=== PATIENT | male | born 1970 | race Caucasian/White ===

== ENCOUNTER 2018-08-09 21:57 | Inpatient (IN) ==
[2018-08-09 22:23] LABS: Basophils # (auto) 0.02 K/uL (0-0.2); Basophils % (auto) 0.2 %; Eosinophils # (auto) 0.03 K/uL (0-0.5); Eosinophils % (auto) 0.3 %; Hematocrit (blood only) 42.8 % (42-52); Hemoglobin 14.8 g/dL (14.0-18.0); Immature Granulocytes # (auto) 0.09 K/uL (0.00-0.02); Immature Granulocytes % (auto) 0.8 %; Lymphocytes # (auto) 3.71 K/uL (1.2-3.4); Lymphocytes % (auto) 33.1 %; Mean Corpuscular Hgb Conc 34.6 g/dL (32-36); Mean Corpuscular Volume 92.8 fL (80-100); Mean Platelet Volume 10.5 fL (7.4-10.4); Monocytes # (auto) 0.91 K/uL (0.11-0.59); Monocytes % (auto) 8.1 %; Neutrophils # (auto) 6.45 K/uL (1.4-6.5); Neutrophils % (auto) 57.5 %; Platelet Count 221 K/uL (130-400); RDW Coefficient of Variation 14.1 % (11.5-14.5); RDW Standard Deviation 48.3 fL (36.4-46.3); Red Blood Count 4.61 M/uL (4.7-6.1); White Blood Count 11.21 K/uL (4.8-10.8)
[2018-08-09 22:32] LABS: Prothrombin Time 10.4 Seconds (9.0-12.0)
--- NOTE | 2018-08-09 22:36 | Emergency Department Note ---
History of Present Illness General Chief complaint: Chest Pain Stated complaint: CHEST PAIN Time Seen by Provider: 08/09/18 22:09 History of Present Illness This patient is a 48-year-old male presents to the emergency department via ALS with complaints of chest pain that started approximately 1 hour ago. He says that it is sharp and stabbing in the center of his chest and radiates to his jaw. He also feels a heaviness in his arms bilaterally. The patient has a history of IN status post stent placement in 2013. He also reports feeling short of breath, but that is not unusual for him. Prior to the ambulance arrival, he took a nitroglycerin. He also had a nitroglycerin in the ambulance in addition to 4 aspirin. This seemed to improve his symptoms. No recent fever, chills or illnesses. Home Medications Home Medications Medication Instructions Recorded Confirmed Type albuterol sulfate [Ventolin HFA] 1 - 2 puff INHALATION .Q4-6HRS PRN 08/09/18 08/09/18 History carvedilol [Coreg] 25 mg PO BID 08/09/18 08/09/18 History fluticasone propionate [Flonase 1 spray INTRANASAL DAILY 08/09/18 08/09/18 History Allergy Relief] metformin [Glucophage] 500 mg PO BID 08/09/18 08/09/18 History omeprazole 20 mg PO DAILY 08/09/18 08/09/18 History pravastatin [Pravachol] 20 mg PO HS 08/09/18 08/09/18 History prednisone 0 mg PO .TAPER UD 08/09/18 08/09/18 History umeclidinium-vilanterol [Anoro 1 ea INHALATION DAILY 08/09/18 08/09/18 History Ellipta] Allergies Allergy/AdvReac Type Severity Reaction Status Date / Time clopidogrel [From Plavix] Allergy Severe ITCHING Verified 08/09/18 22:54 Past Med/Surg History Medical History CAD (coronary artery disease) Social History Feels Safe at Home: Yes Smoking Status: Current every day smoker Review of Systems A total of 10 systems reviewed and were otherwise negative Physical Exam Vital Signs Vital Signs - 24 hr 08/09/18 22:01 08/09/18 22:59 08/10/18 00:21 Temperature 36.1 C L Temperature Source Oral Sepsis Recent Fever Within 48 Hours No Sepsis New/Unexplained Change in Mental Status No Sepsis Action Taken by Nursing No Action Required Pulse Rate 88 Pulse Rate [Finger] 68 70 Pulse Rhythm Regular Pulse Strength Normal Respiratory Rate 20 18 18 Respiratory Effort / Characteristics Non-Labored Spontaneous Respiratory Depth Normal Respiratory Pattern Regular Blood Pressure 171/88 H Blood Pressure [Right Arm] 147/81 H 124/87 Blood Pressure Mean 115 Blood Pressure Mean [Right Arm] 103 99 Blood Pressure Position Lying Pulse Oximetry 96 93 93 Oxygen Delivery Method Room Air Room Air Room Air Constitutional WD/WN, vitals as above Eyes EOM intact bilaterally ENMT external ear and nose normal, oropharynx normal (Oral mucosa dry) Neck trachea midline Respiratory normal respiratory effort, lungs clear to auscultation Cardiovascular RRR, no murmur, no edema Chest (Breasts) Additional Comments: Chest pain is not reproducible Gastrointestinal (Abdomen) normal bowel sounds, soft, nontender, no hepatosplenomegaly Musculoskeletal no cyanosis or clubbing, extremities motor strength 5/5 Skin no rashes, warm and dry Neurologic Alert and oriented x3. No focal motor deficits. Psychiatric Acting appropriately Course Patient was seen and examined Vital signs including blood pressure were reviewed medications list was verified with patient Labs were obtained, and a saline lock was established And EKG was performed and reviewed. He was put on a monitor. Labs were reviewed. Imaging was also performed.. The patient was seen and examined by my supervising physician who is in agreement with my plan The case was then discussed with the [facility] service. They kindly agreed to evaluate the patient for possible inpatient management. The patient was in agreement. We also reviewed his results thus far. He voiced understanding. After discussion with the [facility] service, he was ordered heparin with a standard bolus IV and Nitropaste His vital signs remained stable in the emergency department. Consultations Consultation #1: Dr. Farias Administered Medications Discontinued Medications Heparin Sodium (Porcine) (Heparin Iv Bolus) Confirm Administered Dose 10,000 units .ROUTE .DocSpera-MED ONE Stop: 08/10/18 00:13 Last Admin: 08/10/18 00:17 Dose: 7,000 units Documented by: [id number] Cosigned by: [id number] Heparin Sodium/Dextrose () 1 ea IV NOW STA; Protocol Stop: 08/09/18 23:57 Last Admin: 08/10/18 00:18 Dose: Not Given Documented by: [id number] Heparin Sodium/Dextrose (Heparin Sodium/Dextrose) Confirm Administered Dose 25,000 units IV .STK-MED ONE Stop: 08/10/18 00:10 Last Admin: 08/10/18 00:16 Dose: 1,500 units Documented by: [id number] Cosigned by: [id number] Nitroglycerin (Nitro-Bid 2%) 2 inch EXT ONE ONE Stop: 08/09/18 23:58 Last Admin: 08/10/18 00:15 Dose: 2 inch Documented by: [id number] Medical Decision Making Medical Records Attestation: I reviewed the patient's medical records. Home Medications Current Medication List: was personally reviewed by me Laboratory Data Attestation: I reviewed the patient's lab results. Result diagrams: 08/09/18 21:37 08/09/18 21:37 Lab Results 08/09/18 08/09/18 08/09/18 Range/Units 21:37 21:37 21:37 WBC 11.21 H (4.8-10.8) K/uL RBC 4.61 L (4.7-6.1) M/uL Hgb 14.8 (14.0-18.0) g/dL Hct 42.8 (42-52) % MCV 92.8 (80-100) fL MCH 32.1 (25-34) pg MCHC 34.6 (32-36) g/dL RDW Std Deviation 48.3 H (36.4-46.3) fL RDW Coeff of Trevin 14.1 (11.5-14.5) % Plt Count 221 (130-400) K/uL MPV 10.5 H (7.4-10.4) fL Immature Gran % (Auto) 0.8 % Neut % (Auto) 57.5 % Lymph % (Auto) 33.1 % Furn[place] % (Auto) 8.1 % Eos % (Auto) 0.3 % Baso % (Auto) 0.2 % Immature Gran # (Auto) 0.09 H (0.00-0.02) K/uL Neut # (Auto) 6.45 (1.4-6.5) K/uL Lymph # (Auto) 3.71 H (1.2-3.4) K/uL [place] # (Auto) 0.91 H (0.11-0.59) K/uL Eos # (Auto) 0.03 (0-0.5) K/uL Baso # (Auto) 0.02 (0-0.2) K/uL RBC Morphology Unremarkable PT 10.4 (9.0-12.0) Seconds INR 1.0 (0.9-1.1) APTT (21.0-31.0) Seconds PTT Ratio Sodium 141 (136-145) mmol/L Potassium 3.7 (3.5-5.1) mmol/L Chloride 108 H (98-107) mmol/L Carbon Dioxide 27 (21-32) mmol/L Anion Gap 6.0 (3-11) BUN 16 (7-18) mg/dl Creatinine 1.12 (0.6-1.4) mg/dl Est Cr Clr Drug Dosing 93.5 ml/min Est GFR ( Amer) 88.3 Est GFR (Non-Af Amer) 76.2 BUN/Creatinine Ratio 14.4 (10-20) Glucose 221 H (70-99) mg/dl Calcium 9.3 (8.5-10.1) mg/dl Magnesium 2.1 (1.8-2.4) mg/dl Total Bilirubin 0.3 (0.2-1) mg/dl AST 11 L (15-37) U/L ALT 20 (12-78) U/L Alkaline Phosphatase 59 (45-117) U/L POC Troponin I (0-0.045) ng/ml Total Protein 7.1 (6.4-8.2) gm/dl Albumin 3.6 (3.4-5.0) gm/dl Globulin 3.5 (2.5-4.0) gm/dl Albumin/Globulin Ratio 1.0 (0.9-2) 08/09/18 08/09/18 Range/Units 22:11 22:19 WBC (4.8-10.8) K/uL RBC (4.7-6.1) M/uL Hgb (14.0-18.0) g/dL Hct (42-52) % MCV (80-100) fL MCH (25-34) pg MCHC (32-36) g/dL RDW Std Deviation (36.4-46.3) fL RDW Coeff of Trevin (11.5-14.5) % Plt Count (130-400) K/uL MPV (7.4-10.4) fL Immature Gran % (Auto) % Neut % (Auto) % Lymph % (Auto) % [place] % (Auto) % Eos % (Auto) % Baso % (Auto) % Immature Gran # (Auto) (0.00-0.02) K/uL Neut # (Auto) (1.4-6.5) K/uL Lymph # (Auto) (1.2-3.4) K/uL Furn[place] # (Auto) (0.11-0.59) K/uL Eos # (Auto) (0-0.5) K/uL Baso # (Auto) (0-0.2) K/uL RBC Morphology PT (9.0-12.0) Seconds INR (0.9-1.1) APTT 25.8 (21.0-31.0) Seconds PTT Ratio 1.0 Sodium (136-145) mmol/L Potassium (3.5-5.1) mmol/L Chloride (98-107) mmol/L Carbon Dioxide (21-32) mmol/L Anion Gap (3-11) BUN (7-18) mg/dl Creatinine (0.6-1.4) mg/dl Est Cr Clr Drug Dosing ml/min Est GFR ( Amer) Est GFR (Non-Af Amer) BUN/Creatinine Ratio (10-20) Glucose (70-99) mg/dl Calcium (8.5-10.1) mg/dl Magnesium (1.8-2.4) mg/dl Total Bilirubin (0.2-1) mg/dl AST (15-37) U/L ALT (12-78) U/L Alkaline Phosphatase (45-117) U/L POC Troponin I < 0.03 (0-0.045) ng/ml Total Protein (6.4-8.2) gm/dl Albumin (3.4-5.0) gm/dl Globulin (2.5-4.0) gm/dl Albumin/Globulin Ratio (0.9-2) Imaging Data Attestation: I personally reviewed and interpreted this imaging study as follows: Radiologist's Impression: Chest x-ray 1. No acute cardiopulmonary findings. 2. No change in interstitial thickening which is probably chronic. Electronically signed by: Jona Nieto M.D. 08/09/2018 10:36 PM Dictated: 08/09/182234 Transcribed: 08/09/182234 ECG Data Attestation: I personally reviewed and interpreted this ECG as follows: Indication: chest pain Rate (beats per minute): 74 Rhythm: normal sinus Findings: + PVC Additional Comments: ST depression evident in the anterior and inferior leads, which appears new when compared to EKG of December 2013 Blood Pressure Blood Pressure Findings: Elevated blood pressure MDM Narrative Differential diagnosis: Unstable angina, acute myocardial infarction, cardiac arrhythmia, anemia, thyroid abnormality, pneumothorax, pneumonia, bronchitis, pericarditis, electrolyte imbalance, among others This patient is a 48-year-old male presents the emergency department with complaints of chest pain. On exam, he was hypertensive. I cannot reproduce any of the pain. His EKG was reviewed. There appear to be inferior changes. The patient said he had very similar symptoms during his prior heart attack. His initial troponin is negative. I do not feel comfortable sending the patient home given his presentation and history. The patient was in agreement for hospitalist evaluation. He remained stable in the emergency department. Impression & Plan Unstable angina Discharge Plan Visit Data Chief Complaint: Chest Pain Stated Complaint: CHEST PAIN ED Provider: Hever Castaneda ED Midlevel Provider: Areli Lezama Discharge Problem: Unstable angina Patient Disposition: Admitted As Inpatient Condition: Fair Forms Stand Alone Forms: Call Back Authorization, [facility], Important Visit Information Prescriptions Prescriptions: No Action metformin [Glucophage] 500 mg tablet 500 mg PO BID RF: 0 carvedilol [Coreg] 25 mg tablet 25 mg PO BID RF: 0 prednisone 20 mg tablet PO .TAPER UD RF: 0 omeprazole 20 mg capsule,delayed release(DR/EC) 20 mg PO DAILY RF: 0 pravastatin [Pravachol] 20 mg tablet 20 mg PO HS RF: 0 albuterol sulfate [Ventolin HFA] 90 mcg/actuation HFA aerosol inhaler 1 - 2 puff inhalation .Q4-6HRS PRN (Reason: Shortness Of Breath Or Wheezing) RF: 0 fluticasone propionate [Flonase Allergy Relief] 50 mcg/actuation spray,suspension 1 spray intranasal DAILY RF: 0 Anoro Ellipta 62.5-25 mcg/actuation blister with device 1 ea inhalation DAILY RF: 0 Referrals Referrals: Barbara Cisneros DO [Primary Care Provider] -
--- NOTE | 2018-08-09 22:37 | XRay Report ---
XR chest 1V portable CLINICAL HISTORY: Midsternal chest pain COMPARISON STUDY: Chest radiograph July 26, 2018. FINDINGS: Lung volumes are normal. There is no pneumothorax or pleural effusion. There is no consolid ation. Mild interstitial thickening is unchanged. Cardiac size is normal. Mediastinal contours are no rmal. Appearance of the chest is unchanged. IMPRESSION: 1. No acute cardiopulmonary findings. 2. No change in interstitial thickening which is probably chronic. Electronically signed by: Jona Nieto M.D. 08/09/2018 10:36 PM
[2018-08-09 22:40] LABS: Albumin Level 3.6 gm/dl (3.4-5.0); BUN Creatinine Ratio 14.4 (10-20); Calcium 9.3 mg/dl (8.5-10.1); Creatinine Clr Calc Pharmacy 93.5 ml/min; Est GFR (African American) 88.3; Est GFR (Non-African American) 76.2; Magnesium 2.1 mg/dl (1.8-2.4); Potassium 3.7 mmol/L (3.5-5.1)
--- NOTE | 2018-08-09 22:40 | Emergency Department Note ---
ED Visit Note This Patient was discussed with the physician janitorial assistant, Areli Lezama PA-C. The pertinent historical and physical exam findings were confirmed. I agree with the studies ordered and with the interpretations of these studies. I agree with the disposition and care plan. .
[2018-08-09 22:43] LABS: Bilirubin,Total 0.3 mg/dl (0.2-1); Globulin 3.5 gm/dl (2.5-4.0); Total Protein 7.1 gm/dl (6.4-8.2)
[2018-08-09 22:48] LABS: RBC Morphology Unremarkable
[2018-08-09 23:33] LABS: Partial Thromboplastin Time 25.8 Seconds (21.0-31.0)
[2018-08-09] MEDS ORDERED: NITROGLYCERIN 2% OINTMENT 30GM TUBE EXT ONE (23:57)
[2018-08-10] MEDS ORDERED: HEPARIN 25000 UNIT/500 ML D5W IV ONE (00:09)
[2018-08-10] MEDS ORDERED: HEPARIN SOD (PORCINE) 1000 UNIT/ML 10 ML VIAL ONE (00:12)
[2018-08-10] MEDS ORDERED: ALBUTEROL HFA 8 GM INHALER INH PRN (00:33)
--- NOTE | 2018-08-10 01:07 | History & Physical Report ---
Date of Service August 10, 2018 Assessment & Plan (1) Unstable angina: 48-year-old male with history of COPD, hypertension, hyperlipidemia, type II diabetes, CAD��NM status post stents in 2012 in 2013 presents with acute chest pain. He states that the chest pain began at 630 tonight and continue for 45 minutes until he received nitro spray in route to the hospital. He describes the chest pain as initially beginning in his jaw, extending to his bilateral arms and finally becoming a substernal generalized pain. He states that he became short of breath and diaphoretic. He took nitro sublingually at home without any relief. Since his NM in 2013, the patient has had intermittent anginal symptoms, but they usually resolve fairly quickly. He states that this pain was very similar to his MIs in the past. Patient is a [id number] current smoker. Patient is finishing a course of prednisone for a COPD exacerbation. Unstable angina, ACS rule out �Patient's risk factors and history are concerning �Observe on telemetry, starting heparin, EKG with chest pain, trending troponins �Khadm-nq-buzz troponin was negative, no ischemic changes noted on EKG �Continue aspirin, beta-merry, statin Hypertension �Continue Coreg 25 twice daily �Patient describes nonadherence, recently ran out of his medications Hyperlipidemia �Continue pravastatin 20 mg, with recommend maximizing statin if patient can tolerate Diabetes �Hold metformin �Sliding scale insulin Tobacco abuse disorder �Provided smoking cessation counseling COPD �Continue home inhalers �Holding prednisone on the hospital GERD �Continue omeprazole DVT prophylax �Heparin CODE STATUS �Full (2) History of heart attack: (3) HTN (hypertension): (4) Diabetes: (5) Tobacco user: (6) Hyperlipidemia: (7) GERD (gastroesophageal reflux disease): (8) COPD (chronic obstructive pulmonary disease): History of Present Illness Primary Care Provider: Barbara Cisneros DO 48-year-old male with history of COPD, hypertension, hyperlipidemia, type II diabetes, CAD��NM status post stents in 2012 in 2013 presents with acute chest pain. He states that the chest pain began at 630 tonight and continue for 45 minutes until he received nitro spray in route to the hospital. He describes the chest pain as initially beginning in his jaw, extending to his bilateral arms and finally becoming a substernal generalized pain. He states that he became short of breath and diaphoretic. He took nitro sublingually at home without any relief. Since his NM in 2013, the patient has had intermittent anginal symptoms, but they usually resolve fairly quickly. He states that this pain was very similar to his MIs in the past. Patient is a [id number] current smoker. Patient is finishing a course of prednisone for a COPD exacerbation. Review of systems Constitutional; no fevers, chills, night HEENT; no sore throat, no runny nose CV; chest pain described above, no palpitations, no lower extremity swelling Pulmonary; shortness of breath with chest pain, no cough, no wheezing Abdomen; no abdominal pain, no nausea/vomiting/diarrhea Allergies Allergy/AdvReac Type Severity Reaction Status Date / Time clopidogrel [From Plavix] Allergy Severe ITCHING Verified 08/09/18 22:54 Home Medications Home Medications Medication Instructions Recorded Confirmed Type Anoro Ellipta 1 ea INHALATION DAILY 08/09/18 08/09/18 History albuterol sulfate [Ventolin HFA] 1 - 2 puff INHALATION .Q4-6HRS PRN 08/09/18 08/09/18 History fluticasone propionate [Flonase 1 spray INTRANASAL DAILY 08/09/18 08/09/18 History Allergy Relief] metformin [Glucophage] 500 mg PO BID 08/09/18 08/09/18 History omeprazole 20 mg PO DAILY 08/09/18 08/09/18 History prednisone 0 mg PO .TAPER UD 08/09/18 08/09/18 History amlodipine 2.5 mg PO DAILY #30 tab 08/11/18 Rx aspirin [Ecotrin Low Strength] 81 mg PO QAM #30 tab 08/11/18 Rx atorvastatin 40 mg PO DAILY #30 tab 08/11/18 Rx carvedilol [Coreg] 25 mg PO BID 90 Days #180 tab 08/11/18 08/09/18 Rx ticagrelor [Brilinta] 90 mg PO BID 30 Days #60 tab 08/11/18 Rx Past Med/Surg History Medical History CAD (coronary artery disease) Social History Preferred Language: Belarusian Communication Ability: Effective [employer] Required: No Beliefs That Will Affect Care: None Current Living Situation: Alone Other Information That Helps Us Care for You: No Feels Safe at Home: Yes Safety Concerns: Feels Safe At This Time Smoking Status: Current every day smoker Tobacco Type: cigarettes Do You Dip or Chew Tobacco: No Second Hand Exposure: No Tobacco Cessation Education Requested by Patient: No Hx Alcohol Use: Yes Hx Substance Use: No Review of Systems Review of Systems: All systems reviewed & are unremarkable except as noted in HPI & below Physical Exam Constitutional: WD/WN, vitals as above Eyes: PERRL, conjunctivae normal, anicteric sclerae ENMT: external ear and nose normal, oropharynx normal Neck: trachea midline, no thyromegaly Respiratory: normal respiratory effort, lungs clear to auscultation Cardiovascular: RRR, no murmur, no edema Gastrointestinal (Abdomen): normal bowel sounds, soft, nontender, no hepatosplenomegaly Musculoskeletal: no cyanosis or clubbing, extremities motor strength 5/5 Skin: no rashes, warm and dry Neurologic: PERRL, EOMI, accommodation nl, no face palsy, no dysarthria Psychiatric: A+Ox3, euthymic affect Results & Data Vital Signs (Past 12 Hours) Vital Signs Temp Pulse Pulse Resp BP BP Pulse Ox 08/10/18 00:21 70 18 124/87 93 08/09/18 22:59 68 18 147/81 H 93 08/09/18 22:01 36.1 C L 88 20 171/88 H 96 Code Status & VTE Plan Code Status full VTE Prophylaxis Plan VTE Prophylaxis will be ordered: Yes Supervising Physician Co-Signing Physician Notes Attending addendum: I have physically seen this patient, have supervised the medical residents activities, and agree with the H&P unless as otherwise noted. Assessment and Plan: Unstable angina/CKD/history of NM/coronary artery stents in 2012 and 2013- The patient will be admitted to telemetry for serial cardiac enzymes, serial EKG's, cardiac rhythm monitoring and a 2-D echocardiogram with Dopplers. Continue Coreg 25 mg p.o. twice daily. Continue aspirin 81 mg daily. Heparin drip. High-dose statin. Consult cardiology. Remainder of orders and notations as noted. Resident Activity Tracking Resident Involvement: Resident Care Provided Care Provided: Adult [facility] Medicine
[2018-08-10] MEDS ORDERED: POTASSIUM CHLORIDE 20 MEQ TABCR PO STA (01:44)
[2018-08-10] MEDS ORDERED: NITROGLYCERIN SL 0.4 MG/TAB TAB SL PRN (01:44)
[2018-08-10] MEDS ORDERED: ACETAMINOPHEN 325 MG TAB PO PRN (01:44)
[2018-08-10] MEDS ORDERED: GLUCOSE 10 TABS/TUBE PO PRN (02:00)
[2018-08-10] MEDS ORDERED: GLUCAGON FOR INJ 1 MG VIAL SQ PRN (02:00)
[2018-08-10] MEDS ORDERED: DEXTROSE 50% 50 ML SYRINGE IV PRN (02:00)
[2018-08-10] MEDS ORDERED: GLUCOSE 40% GEL 15 GM TUBE PO PRN (02:00)
[2018-08-10] MEDS ORDERED: CARBOHYDRATES FOR HYPOGLYCEMIA PO PRN (02:00)
[2018-08-10] MEDS ORDERED: Heparin Adult STANDARD Wt-Based Dextrose 5% 25,000 units/500 mL IV SCH (02:15)
[2018-08-10] MEDS ORDERED: CALCIUM CARBONATE 500 MG CHEWABLE TAB PO PRN (02:29)
[2018-08-10] MEDS: CARVEDILOL 25 MG TAB PO SCH ×2 (02:32→20:38)
[2018-08-10] MEDS ORDERED: PNEUMOCOCCAL POLYSACCHARIDES 25 MCG/0.5 ML VIAL/SYR IM ONE (04:00)
[2018-08-10] MEDS ORDERED: PNEUMOCOCCAL ADMINISTRATION CHARGE ONE (04:00)
[2018-08-10 04:51] LABS: Hematocrit (blood only) 40.9 % (42-52); Hemoglobin 14.2 g/dL (14.0-18.0); Mean Corpuscular Hgb Conc 34.7 g/dL (32-36); Mean Corpuscular Volume 92.1 fL (80-100); Mean Platelet Volume 10.2 fL (7.4-10.4); Platelet Count 200 K/uL (130-400); RDW Coefficient of Variation 14.1 % (11.5-14.5); RDW Standard Deviation 48.1 fL (36.4-46.3); Red Blood Count 4.44 M/uL (4.7-6.1)
[2018-08-10 05:09] LABS: BUN Creatinine Ratio 18.1 (10-20); Calcium 8.8 mg/dl (8.5-10.1); Creatinine Clr Calc Pharmacy 107.7 ml/min; Est GFR (African American) 103.8; Est GFR (Non-African American) 89.5; Magnesium 2.2 mg/dl (1.8-2.4); Potassium 3.5 mmol/L (3.5-5.1)
[2018-08-10 05:18] LABS: Phosphorus 2.9 mg/dl (2.5-4.9); Troponin I 0.396 ng/ml (0-0.045)
[2018-08-10 05:43] LABS: Basophils # (auto) 0.03 K/uL (0-0.2); Basophils % (auto) 0.2 %; Eosinophils % (auto) 1.5 %; Immature Granulocytes # (auto) 0.08 K/uL (0.00-0.02); Immature Granulocytes % (auto) 0.6 %; Lymphocytes # (auto) 6.09 K/uL (1.2-3.4); Lymphocytes % (auto) 45.8 %; Monocytes # (auto) 1.24 K/uL (0.11-0.59); Monocytes % (auto) 9.3 %; Neutrophils # (auto) 5.66 K/uL (1.4-6.5); Neutrophils % (auto) 42.6 %; RBC Morphology Unremarkable
[2018-08-10] MEDS: INSULIN ASPART 100 UNITS/ML 3 ML PEN SC SCH ×4 (07:58→20:59)
[2018-08-10] MEDS: ANORO ELLIPTA~ORDER AWAITING ACTION SCH ×3 (07:59→23:28)
[2018-08-10] MEDS: PANTOprazole 40 MG TAB PO SCH (08:00)
[2018-08-10] MEDS: NICOTINE 14 MG/24 HR PATCH TD SCH (08:00)
[2018-08-10] MEDS: ASPIRIN 81 MG ECTAB PO SCH (08:06)
[2018-08-10 08:43] LABS: Partial Thromboplastin Ratio 2.4
[2018-08-10 08:45] LABS: Partial Thromboplastin Time 64.3 Seconds (21.0-31.0)
--- NOTE | 2018-08-10 09:26 | Family Medicine Progress Note ---
Date of Service August 10, 2018 Assessment & Plan (1) Chest pain: Hever is a 54-year-old male with past medical history of COPD, hypertension, hyperlipidemia, type 2 diabetes not on insulin therapy, coronary artery disease with HI status post PCI in 2013 in 2013 who presented with chest pressure, jaw pain, shortness of breath, and diaphoresis which improved with EMS nitro administration and who has been admitted for cardiac evaluation. Chest pain,NSTEMI versus unstable angina �Presented with chest pain that began in the evening which extended to his jaw and arms and was associated with shortness of breath and diaphoresis. Pain was refractory to a single home dose of sublingual nitro, resolved with nitro administration by EMS. �He is high risk for ACS, (history of diabetes, past CAD, hypertension, 32-[id number] tobacco use history with 1 pack/day active use) �Troponin 0.396 on admission, trend every 6 hours �Initial EKG showed some flipped T waves, repeat EKG normalized with NSR �Heparin GTT, aspirin 81 mg daily, carvedilol 25 mg p.o. twice daily, pravastatin 20 mg daily. Although not listed in his med rec he does take aspirin 81 mg daily at home. �Cardiac history his pravastatin is a low�moderate intensity dosing, would recommend maximizing statin intensity and potentially moving to atorvastatin 40 mg - 80 mg or equivalent. He does not think he has been tried on Crestor in the past, but notes he did have aches with one other statin and does not remember which it was. Will think about conversion overnight, and revisit discussion tomorrow. �Cardiology consulted, pending further recommendations on echo versus cath Hypertension �Continue carvedilol as above �Mr. Ho recently ran out of medications and has not been taking his antihypertensive, does not cite cost as a prohibiting factor Hyperlipidemia �MANUFACTURING QUALITY MANAGER pravastatin 20 mg, optimize as above Type 2 diabetes mellitus �Converted to SSI short-acting while admitted �MANUFACTURING QUALITY MANAGER metformin held �Metformin recently started with dose increase, patient has experienced diarrhea since dose change Tobacco abuse �Discussed tobacco risk and effect on heart health �Smoking cessation counseling provided COPD �Was on a prednisone taper for COPD exacerbation, thinks he was on 40 mg MANUFACTURING QUALITY MANAGER �MANUFACTURING QUALITY MANAGER Anoro Ellipta GERD �MANUFACTURING QUALITY MANAGER omeprazole converted to Protonix 40 mg daily DVT prophylaxis �Heparin as above CODE STATUS: Full code (2) COPD (chronic obstructive pulmonary disease): (3) GERD (gastroesophageal reflux disease): (4) Hyperlipidemia: (5) Tobacco user: (6) HTN (hypertension): (7) Diabetes: Supervising Physician Co-Signing Physician Notes I personally examined the patient and verified all corea points of history and exam, discussed case, and agree with decision making with Dr Jolley. feeling better pain free. for [facility] this afternoon. vitals noted nad breathing unlabored no pallor or icterus, no focal neuro deficits NSTEMI/CAD - med management. will wnat to add ACEi after cath, discussed changing to high potency statin - he had a questionable history of leg cramps but wasn't sure what statins he'd tried or not. discussed that frequently crestor is tolerated by pts who can tolerate pravachol. he'll consider. since not actively infarcting now, reasonable to give him time to think. will need to discuss med managmeent/lifestyle/etc moving forward as well. await cath at this time. Subjective Hever reports he is comfortable this morning. He says he has no chest pain since administration of nitro in the ambulance. His night when okay, he has not had any shortness of breath or diaphoresis. He is not nauseous, but feels a little uncomfortable as he has to have a bowel movement. He has had some intermittent diarrhea since starting metformin 1 month ago. No lightheadedness, dizziness, palpitations today. Review of Systems Review of Systems: Constitutional: Denies fever, chills, malaise Eyes: Denies double vision, vision change, eye pain ENT: Denies ear pain, sore throat, sinus pain Cardiovascular: Denies Chest pain, chest pressure, palpitations, extremity swelling Respiratory: Denies shortness of breath, cough, sputum production, difficulty breathing Gastrointestinal: Denies abdominal pain, nausea, vomiting, constipation. Endorses abdomional pressure 'like I need to go to the bathroom' and diarrhea as noted in HPI Genitourinary: Denies pain with urination, urinary urgency, urinary frequency Musculoskeletal: Denies weakness, muscle aches/pain, joint aches/pain Integumentary:Denies rash, lesions, bruising Neurological: Denies headache, numbness, tingling Physical Exam Physical Exam: General: A&Ox3. NAD. Cooperative. HEENT: Atraumatic, normocephalic. Pulm: Diffuse inspiratory and expiratory wheezes, moderate air movement. No rales. Symmetrical chest rise. No increase work of breathing. No respiratory distress. Cardiac: RRR, -mrg. Radial pulses intact and symmetrical. No JVD. Cap refill brisk. Abdominal: Nontender, nondistended, soft. BS present. Results & Data Vital Signs (Past 12 Hours) Vital Signs Temp Pulse Pulse Pulse Resp BP BP 08/10/18 08:00 36.4 C L 75 75 18 138/77 08/10/18 04:00 36.4 C L 73 73 18 109/68 08/10/18 01:44 08/10/18 01:34 36.9 C 80 20 169/84 H 08/10/18 00:21 70 18 124/87 08/09/18 22:59 68 18 147/81 H 08/09/18 22:01 36.1 C L 88 20 171/88 H Pulse Ox Pulse Ox 08/10/18 08:00 98 08/10/18 04:00 94 08/10/18 01:44 95 08/10/18 01:34 96 08/10/18 00:21 93 08/09/18 22:59 93 08/09/18 22:01 96 Resident Activity Tracking Resident Involvement: Resident Care Provided Care Provided: Adult Hospital Medicine
--- NOTE | 2018-08-10 09:35 | Cardiology Consultation ---
Date of Consultation August 10, 2018 Assessment & Plan (1) Chest pain: 2. Coronary artery disease-- History of circumflex PCI, RCA ND treated medically 3. Hypertension 4. Dyslipidemia 5. Peripheral arterial disease 6. Type 2 diabetes mellitus 7. Tobacco use Patient was admitted yesterday with substernal chest, jaw and bilateral arm pain reminiscent of prior angina. Symptoms resolved with nitro. He remains chest pain free and is hemodynamically and electrically stable. Electrocardiogram without ST elevation. Initial troponin was negative, now elevated at 0.396. Recommend cardiac catheterization for further evaluation of coronary anatomy. This will be performed later today by Dr. Barcenas. Continue to trend troponin. Agree with heparin. Continue aspirin, beta merry and statin. Will check echo. Supervising Physician Co-Signing Physician Notes Patient seen and examined. Agree with assessment and plan as oultined by Physician [place] Brownlee. Briefly, Mr. Ho is a very pleasant 48-year-old man with a history of coronary artery disease post prior stent to dominant distal circumflex who was readmitted in the setting of recurrent chest pain reminiscent of prior ND. He was found to have elevated troponin consistent with NSTEMI. Echo showed preserved LV function without regional wall motion of normalities. On exam patient appears well-perfused with no vascular congestion. He was in normal sinus rhythm without murmurs. Patent radial artery pulse. In the setting of elevated risk ACS recommend proceeding with cardiac catheterization for further risk verification. Discussed risk and benefits, alternatives of procedure with patient and he is willing to proceed. History of Present Illness Reason for Consultation: Chest pain Attending Physician: Chester Sevilla DO History of Present Illness Mr. Ho is a 48 year old male with a medical history significant for coronary artery disease status post circumflex PCI (2012) and RCA myocardial infarction managed medically (2013), hypertension, dyslipidemia, tobacco use, type 2 diabetes, peripheral arterial disease (distal aorta occlusion), history of cardiomyopathy. He is followed by Dr. Benites in the outpatient setting. Cardiac history dates back to October 2012 when he underwent cardiac catheterization in [place] for angina and was found to have 95% stenosis of distal circumflex. He was treated with single RAMSES placement. In December 2013 he was admitted with non-ST elevation myocardial infarction and underwent cardiac catheterization which demonstrated small, nondominant RCA with long stenotic segment and focal 95-99% stenosis proximally. Vessel was too small and not amenable to PCI. Cath also demonstrated 30% mid-distal LAD stenosis and patent distal circumflex stent. Yesterday around 6 pm he developed substernal chest pain with radiation to jaw and bilateral arms. He had associated shortness of breath and diaphoresis. Symptoms occurred at rest and got progressively worse over about a one hour period. Symptoms reminiscent of prior angina. He took one nitro at home which did not help but also mentions it was . He called 911 and in the ambulance was given aspirin and nitro with resolution of his pain. Electrocardiogram without acute changes. Troponin in ED was negative, repeat elevated at 0.396. Patient remains chest pain free. No shortness of breath, orthopnea, PND or edema. No palpitations, lightheadedness, near syncope or syncope. Activity level is limited due to claudication symptoms. He has known occlusion of distal aorta and has denied vascular surgery referral. He has chronic exertional dyspnea which has been stable. Denies any recent exertional chest pain. No abnormal bleeding. Family History: No known premature CAD Social History: Smokes 1 pack per day. Not , no children. Unemployed. Allergies Allergy/AdvReac Type Severity Reaction Status Date / Time clopidogrel [From Plavix] Allergy Severe ITCHING Verified 08/09/18 22:54 Home Medications Home Medications Medication Instructions Recorded Confirmed Type albuterol sulfate [Ventolin HFA] 1 - 2 puff INHALATION .Q4-6HRS PRN 08/09/18 08/09/18 History carvedilol [Coreg] 25 mg PO BID 08/09/18 08/09/18 History fluticasone propionate [Flonase 1 spray INTRANASAL DAILY 08/09/18 08/09/18 History Allergy Relief] metformin [Glucophage] 500 mg PO BID 08/09/18 08/09/18 History omeprazole 20 mg PO DAILY 08/09/18 08/09/18 History pravastatin [Pravachol] 20 mg PO HS 08/09/18 08/09/18 History prednisone 0 mg PO .TAPER UD 08/09/18 08/09/18 History umeclidinium-vilanterol [Anoro 1 ea INHALATION DAILY 08/09/18 08/09/18 History Ellipta] Patient History Medical History CAD (coronary artery disease) Social History Preferred Language: Haitian Communication Ability: Effective Peer Counselor Required: No Beliefs That Will Affect Care: None Current Living Situation: Alone Other Information That Helps Us Care for You: No Feels Safe at Home: Yes Safety Concerns: Feels Safe At This Time Smoking Status: Current every day smoker Tobacco Type: cigarettes Do You Dip or Chew Tobacco: No Second Hand Exposure: No Tobacco Cessation Education Requested by Patient: No Hx Alcohol Use: Yes Hx Substance Use: No Review of Systems Review of Systems: All systems reviewed & are unremarkable except as noted in HPI & below Physical Exam Physical Exam: General: No acute distress, comfortable. HEENT: Head is normal. PERRLA. EOMI. Sclerae anicteric. Ears, nose and throat unremarkable. Mucous membranes moist. Neck: Normal carotid upstrokes, no bruits. No appreciable JVD. Lungs: Clear to auscultation bilaterally without rales, rhonchi or wheezes. Cardiac: Regular rate and rhythm. S1-S2 normal. No appreciable murmur, gallop or rub. Abdomen: Soft and nontender. Bowel sounds normal. No mass or organomegaly. No abdominal bruit. Extremities/vascular: -- Well perfused. No peripheral edema. --Radial pulses 2+ bilaterally. DP/PT pulses 1+ bilaterally. --No lower extremity ulcerations --No varicosities Skin: No rash or abnormal lesions. Normal turgor. Neurologic: Nonfocal Psychiatric: Affect appropriate. Alert and oriented. Results & Data Vital Signs (Past 12 Hours) Vital Signs Temp Pulse Pulse Pulse Resp BP BP 08/10/18 08:00 36.4 C L 75 75 18 138/77 08/10/18 04:00 36.4 C L 73 73 18 109/68 08/10/18 01:44 08/10/18 01:34 36.9 C 80 20 169/84 H 08/10/18 00:21 70 18 124/87 08/09/18 22:59 68 18 147/81 H 08/09/18 22:01 36.1 C L 88 20 171/88 H Pulse Ox Pulse Ox 08/10/18 08:00 98 08/10/18 04:00 94 08/10/18 01:44 95 08/10/18 01:34 96 08/10/18 00:21 93 05/28/19 22:59 93 08/09/18 22:01 96 Laboratory Results Laboratory Results - last 24 hr 08/09/18 08/09/18 08/09/18 21:37 21:37 21:37 WBC 11.21 H RBC 4.61 L Hgb 14.8 Hct 42.8 MCV 92.8 MCH 32.1 MCHC 34.6 RDW Std Deviation 48.3 H RDW Coeff of Trevin 14.1 Plt Count 221 MPV 10.5 H Immature Gran % (Auto) 0.8 Neut % (Auto) 57.5 Lymph % (Auto) 33.1 [place] % (Auto) 8.1 Eos % (Auto) 0.3 Baso % (Auto) 0.2 Immature Gran # (Auto) 0.09 H Neut # (Auto) 6.45 Lymph # (Auto) 3.71 H [place] # (Auto) 0.91 H Eos # (Auto) 0.03 Baso # (Auto) 0.02 Blood Smear Review RBC Morphology Unremarkable PT 10.4 INR 1.0 APTT PTT Ratio Sodium 141 Potassium 3.7 Chloride 108 H Carbon Dioxide 27 Anion Gap 6.0 BUN 16 Creatinine 1.12 Est Cr Clr Drug Dosing 93.5 Est GFR ( Amer) 88.3 Est GFR (Non-Af Amer) 76.2 BUN/Creatinine Ratio 14.4 Glucose 221 H POC Glucose Calcium 9.3 Phosphorus Magnesium 2.1 Total Bilirubin 0.3 AST 11 L ALT 20 Alkaline Phosphatase 59 POC Troponin I Troponin I Total Protein 7.1 Albumin 3.6 Globulin 3.5 Albumin/Globulin Ratio 1.0 08/09/18 08/09/18 08/10/18 22:11 22:19 02:45 WBC RBC Hgb Hct MCV MCH MCHC RDW Std Deviation RDW Coeff of Trevin Plt Count MPV Immature Gran % (Auto) Neut % (Auto) Lymph % (Auto) [place] % (Auto) Eos % (Auto) Baso % (Auto) Immature Gran # (Auto) Neut # (Auto) Lymph # (Auto) [place] # (Auto) Eos # (Auto) Baso # (Auto) Blood Smear Review RBC Morphology PT INR APTT 25.8 PTT Ratio 1.0 Sodium Potassium Chloride Carbon Dioxide Anion Gap BUN Creatinine Est Cr Clr Drug Dosing Est GFR ( Amer) Est GFR (Non-Af Amer) BUN/Creatinine Ratio Glucose POC Glucose 190 H Calcium Phosphorus Magnesium Total Bilirubin AST ALT Alkaline Phosphatase POC Troponin I < 0.03 Troponin I Total Protein Albumin Globulin Albumin/Globulin Ratio 08/10/18 08/10/18 08/10/18 04:24 04:24 07:42 WBC 13.30 H RBC 4.44 L Hgb 14.2 Hct 40.9 L MCV 92.1 MCH 32.0 MCHC 34.7 RDW Std Deviation 48.1 H RDW Coeff of Trevin 14.1 Plt Count 200 MPV 10.2 Immature Gran % (Auto) 0.6 Neut % (Auto) 42.6 Lymph % (Auto) 45.8 [place] % (Auto) 9.3 Eos % (Auto) 1.5 Baso % (Auto) 0.2 Immature Gran # (Auto) 0.08 H Neut # (Auto) 5.66 Lymph # (Auto) 6.09 H [place] # (Auto) 1.24 H Eos # (Auto) 0.20 Baso # (Auto) 0.03 Blood Smear Review RBC Morphology Unremarkable PT INR APTT 64.3 H* PTT Ratio 2.4 Sodium 143 Potassium 3.5 Chloride 110 H Carbon Dioxide 28 Anion Gap 5.0 BUN 18 Creatinine 0.98 Est Cr Clr Drug Dosing 107.7 Est GFR ( Amer) 103.8 Est GFR (Non-Af Amer) 89.5 BUN/Creatinine Ratio 18.1 Glucose 124 H POC Glucose Calcium 8.8 Phosphorus 2.9 Magnesium 2.2 Total Bilirubin AST ALT Alkaline Phosphatase POC Troponin I Troponin I 0.396 H* Total Protein Albumin Globulin Albumin/Globulin Ratio 08/10/18 07:57 WBC RBC Hgb Hct MCV MCH MCHC RDW Std Deviation RDW Coeff of Trevin Plt Count MPV Immature Gran % (Auto) Neut % (Auto) Lymph % (Auto) [place] % (Auto) Eos % (Auto) Baso % (Auto) Immature Gran # (Auto) Neut # (Auto) Lymph # (Auto) [place] # (Auto) Eos # (Auto) Baso # (Auto) Blood Smear Review RBC Morphology PT INR APTT PTT Ratio Sodium Potassium Chloride Carbon Dioxide Anion Gap BUN Creatinine Est Cr Clr Drug Dosing Est GFR ( Amer) Est GFR (Non-Af Amer) BUN/Creatinine Ratio Glucose POC Glucose 135 H Calcium Phosphorus Magnesium Total Bilirubin AST ALT Alkaline Phosphatase POC Troponin I Troponin I Total Protein Albumin Globulin Albumin/Globulin Ratio ECG Additional Comments: EKGs reviewed, no ST changes Telemetry reviewed-- no events
[2018-08-10 11:38] LABS: Estimated Average Glucose 183 mg/dl
[2018-08-10] MEDS ORDERED: fentaNYL citrate 100 MCG/2 ML VIAL ONE ×2 (15:27→15:54)
[2018-08-10] MEDS ORDERED: HEPARIN (PORCINE) 1000 UNIT/ML 10 ML (CATH LAB USE ONLY) ONE (15:27)
[2018-08-10] MEDS ORDERED: MIDAZOLAM HCL 1 MG/ML 2ML VIAL ONE ×2 (15:27→15:54)
[2018-08-10] MEDS ORDERED: NiCARDipine HCL INJ 2.5 MG/ML 10 ML AMP ONE (15:27)
[2018-08-10] MEDS ORDERED: NITROGLYCERIN/D5W 100MCG/ML 20ML SYR ONE (15:28)
--- NOTE | 2018-08-10 15:49 | Pre Anesthesia Assessment ---
Date of Service August 10, 2018 Pre Sedation Assessment Vital Signs Temp Pulse Pulse Pulse Resp BP BP 08/10/18 12:00 62 16 113/55 L 08/10/18 08:00 36.4 C L 75 75 18 138/77 08/10/18 04:00 36.4 C L 73 73 18 109/68 08/10/18 01:44 08/10/18 01:34 36.9 C 80 20 169/84 H 08/10/18 00:21 70 18 124/87 08/09/18 22:59 68 18 147/81 H 08/09/18 22:01 36.1 C L 88 20 171/88 H Pulse Ox Pulse Ox 08/10/18 12:00 95 08/10/18 08:00 98 08/10/18 04:00 94 08/10/18 01:44 95 08/10/18 01:34 96 08/10/18 00:21 93 08/09/18 22:59 93 08/09/18 22:01 96 Cardiovascular RRR, no murmur, no edema Respiratory normal respiratory effort, lungs clear to auscultation Pre-Sedation Airway Assessment Smoking Status: Current every day smoker Thyromental Distance: > or= 3.5 Finger Breadths Oral Cavity: + WNL Mallampati Class: III Procedure Planning Contraindications for Sedation: none Current Medications Reviewed: Yes Notes The planned sedation has been discussed with the patient. Informed Consent was obtained. I have identified the patient, determined the appropriateness of sedation and have assessed the patient immediately prior to the procedure. All medicine(s) and interventions are by my order.
[2018-08-10] MEDS ORDERED: TICAGRELOR 90 MG TAB PO ONE (16:15)
--- NOTE | 2018-08-10 16:35 | Post Anesthesia Assessment ---
Date of Service August 10, 2018 Post Sedation Assessment Vital Signs Temp Pulse Pulse Pulse Resp BP BP 08/10/18 12:00 62 16 113/55 L 08/10/18 08:00 36.4 C L 75 75 18 138/77 08/10/18 04:00 36.4 C L 73 73 18 109/68 08/10/18 01:44 08/10/18 01:34 36.9 C 80 20 169/84 H 08/10/18 00:21 70 18 124/87 08/09/18 22:59 68 18 147/81 H 08/09/18 22:01 36.1 C L 88 20 171/88 H Pulse Ox Pulse Ox 08/10/18 12:00 95 08/10/18 08:00 98 08/10/18 04:00 94 08/10/18 01:44 95 08/10/18 01:34 96 08/10/18 00:21 93 08/09/18 22:59 93 08/09/18 22:01 96 Recovery Score Activity: Moves 4 extremities Respiration: Deep Breath/Cough Circulation: +/-20% PreAnes Value Consciousness: Fully Awake Oxygen Saturation: O2 needed for >90% Discharge Sedation Level of Care: Fast Track Phase II Post Sedation Plan On clinical assessment, the patient appears to have tolerated the sedation without complications. Patient is recovering as anticipated. Patient will continue to be monitored by nursing and may be discharged when sedation discharge criteria are met per below protocol. Upon Completions of procedure and additional 15 minutes continue every 5 minute vital signs and the P.A.R. score; then discharge to a Phase I or Fast Track to Phase II per the following guidelines: * Discharge Patient to appropriate Phase II area if PAR is 8 or greater or return to pre- procedure baseline. The post - procedure orders will be as directed. * If PAR score is less than 8 or not return to pre-procedure baseline then patient will follow Phase I monitoring till PAR is reached for Phase II. The Phase I may be done in procedure room or may call to secure a Phase I area. * �If naloxone or flumazenil are used for reversal, hold in Phase I for continued monitoring from when last reversal dose was given for a minimum of 60 minutes or longer pending the nurse and/or physician discretion of patient condition before discharge to Phase II.� Please call the Sedation Physician to re-evaluate and complete post-note for discharge to Phase II area. Do NOT discharge from procedure sedation or Phase 1 until post- sedation evaluation note is complete by procedure /sedation MD Sedation Discharge Instructions to be given to the patient at discharge to home.
[2018-08-10] MEDS ORDERED: ONDANSETRON INJ 2 MG/ML 2 ML VIAL IV PRN (16:48)
--- NOTE | 2018-08-10 16:48 | Cardiac Catheterization ---
Cardiac Cath Procedure Full Procedure Date August 10, 2018 Pre-Procedure Diagnosis Pre-Procedure Diagnosis: Non STEMI AUC Score AUC Score: 8 Post-Procedure Diagnosis Post-Procedure Diagnosis: Severe CAD, Successful PCI and Normal Intracardiac Pressures Procedure(s) Performed Procedure(s) Performed: Coronary Angiography, Left Heart Cath and Drug Eluting Stent Telehealth Coordinator Max Barcenas MD Sample Checker(s) Jonathan Estimated Blood Loss Estimated Blood Loss: 15 Medication(s) Medication(s): Fentanyl, Heparin, Lidocaine 1%, Nicardipine, Nitroglycerin and Versed Medication(s): Ticagrelor Summary of Findings Indication: NSTEMI Access: 6Fr right radial artery Catheters: tiger; EBU 3.5 guide Findings: LM -luminal irregularities LAD -moderate caliber vessel, 20 to 30% proximal disease, 95% acute mid segment stenosis just proximal to takeoff of small third diagonal, distal luminal irregularities as wraps around apex. Circumflex -dominant, moderate caliber, 20-30% mid segment disease, patent distal stent, left PDA without significant disease. OM1 without sniffing disease. Moderate caliber OM 240 to 50% proximal disease RCA - small, non-dominant, diffuse severe mid segment disease LVEDP -4 -- PCI -- Antithrombotic therapy: Heparin, ticagrelor Procedure: Left main cannulated with EBU 3.5 guide Palliative Nurse 50 wire passed across lesion into distal vessel Mid LAD lesion predilated with 2.5 compliant balloon Dilated lesion stented with 2.75 x 28 mm Xience Chanel Stent post-dilated with 3.0 noncompliant balloon IC vasodilators administered for spasm Post procedure BOB 3 flow, stent well expanded with minimal residual stenosis and no apparent cardiac complications. Arterial Closure: TR band Summary: 1. Severe single vessel coronary artery disease -95% acute mid LAD stenosis �Widely patent distal circumflex stent �40 to 50% proximal OM 2 �Small nondominant RCA with severe diffuse mid segment disease 2. Normal intracardiac filling pressure 3. Successful PCI of mid LAD with single drug-eluting stent (2.75 x 28 mm Xience; postdilated with 3.0 NC). 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 Cardiac Status Clinical evaluation leading to the procedure CAD Presenation: Non STEMI Anginal Classification: CCS IV Heart Failure: No Cardiogenic Shock within 24 Hours: No Cardiac Arrest within 24 Hours: No Imaging Studies Past 6 Months: Yes Stress Studies Past 6 Months: No Diagnostic Physicians Name: Max Barcenas MD Status: Elective Closure Device Percutaneous Entry Location: Radial Closure Device: Radial Band Recommendations: PCI without planned CABG PCI Indication: PCI for high risk Non-KARI Lesion Segment Name: mid LAD Culprit Artery: Yes Stenosis Prior to Rx (%): 95 Chronic Total Occlusion: No IVUS: No FFR: No Pre-Procedure BOB Flow: 3 Previously Treated Lesion: No Lesion Complexity: Non-High/Non-C Lesion Length (mm): 24 Thrombus Present: Yes Bifurcation Lesion: Yes Guidewire Across Lesion: Stenosis Post-Procedure (%): 0 Post-Procedure BOB Flow: 3 Devices(s) Deployed: Yes Yes Intraprocedure Events Significant Disection: No Perforation: No
[2018-08-10] MEDS ORDERED: SODIUM CHLORIDE 0.9% 500 ML IV SCH (17:00)
[2018-08-10] MEDS ORDERED: PRAVASTATIN SOD 20 MG TAB PO SCH (21:00)
[2018-08-11] MEDS: ANORO ELLIPTA~ORDER AWAITING ACTION SCH (07:58)
[2018-08-11] MEDS: CARVEDILOL 25 MG TAB PO SCH (08:24)
[2018-08-11] MEDS: ASPIRIN 81 MG ECTAB PO SCH (08:24)
[2018-08-11] MEDS: NICOTINE 14 MG/24 HR PATCH TD SCH (08:24)
[2018-08-11] MEDS: PANTOprazole 40 MG TAB PO SCH (08:24)
[2018-08-11] MEDS: INSULIN ASPART 100 UNITS/ML 3 ML PEN SC SCH ×2 (08:25→12:10)
[2018-08-11 08:33] LABS: BUN Creatinine Ratio 12.4 (10-20); Calcium 9.1 mg/dl (8.5-10.1); Creatinine Clr Calc Pharmacy 117.2 ml/min; Est GFR (African American) 115.6; Est GFR (Non-African American) 99.7; Magnesium 2.1 mg/dl (1.8-2.4); Phosphorus 3.1 mg/dl (2.5-4.9)
[2018-08-11] MEDS ORDERED: TICAGRELOR 90 MG TAB PO SCH (09:00)
--- NOTE | 2018-08-11 09:35 | Cardiology Progress Note ---
Date of Service August 11, 2018 Assessment & Plan (1) Acute coronary syndrome: No further angina. He underwent mid LAD PCI. Troponins were not elevated to the point of NSTEMI. Continue aspirin 81 mg daily indefinitely. Continue Brilinta for at least 1 year. High-intensity statin therapy recommended. Continue beta-merry. Smoking cessation recommended. (2) CAD (coronary artery disease), [place] coronary artery: Medical therapy for non dominant small caliber RCA. Continue medical therapy as above following mid LAD stent. (3) HTN (hypertension): Blood pressure reasonably controlled but has been elevated at home. He will need another prescription for carvedilol as per his home dose. This was discussed with primary hospitalist service, Dr. Jolley. He has a reported cough to LIZY-inhibitor. Dr. Cisneros, PCP, has contacted the office in regards to initiating amlodipine. Can start low-dose amlodipine upon discharge. (4) Hyperlipidemia: High-intensity statin therapy recommended. He has declined titration of statin therapy as an outpatient but is willing to do so today. He recalls myalgias on 1 prior statin but does not recall which 1 (in the past, he reported myalgias to multiple statins). He is willing to try atorvastatin. Although would recommend 80 mg typically, given his history of intolerance to some statin, would recommend 40 mg and this can be later changed as an outpatient if tolerated. (5) Tobacco user: Smoking cessation strongly recommended and encouraged during today's visit. Disposition: Follow-up in 1-2 weeks in the cardiology office. Cardiology office was notified to help arrange this appointment. Plan of care discussed with Dr. Jolley of the primary hospitalist service. He was asked to ambulate in the hallway today prior to discharge (nursing staff aware). Subjective He denies any further angina. He denies dyspnea with exertion, syncope, near- syncope, edema, or bleeding. He does have occasional palpitations. He was reassured that on telemetry he was in sinus rhythm with occasional PVCs but no arrhythmia. He states that he is ready to make changes in his life. He has been reluctant to adjust his statin therapy as an outpatient. Today he states that he did not tolerate 1 statin in the past however in the office he he reported not tolerating atorvastatin, Crestor, or simvastatin. He states that he is willing to try atorvastatin. Review of systems: As above. Physical Exam Physical Exam: Gen.: No acute distress. Alert and oriented. HEENT: Anicteric sclera. Neck: No JVD. Cardiac: Regular. Normal S1-S2. No murmurs, rubs, or gallops. Pulmonary: Clear to auscultation bilaterally without wheezes, rales, or rhonchi. Abdomen: Soft, nontender, nondistended, with normoactive bowel sounds. No bruits noted. Extremities: No edema or cyanosis. Right radial cath site is clean, dry, and intact without erythema or discharge. 2+ right radial pulse. Psychiatric: Affect appears appropriate. Results & Data Vital Signs (Past 12 Hours) Vital Signs Temp Pulse Pulse Pulse Resp BP Pulse Ox 08/11/18 04:00 36.4 C L 63 16 122/71 94 08/11/18 00:00 56 L 08/10/18 23:18 36.7 C 61 19 119/70 96 Laboratory Results Laboratory Results - last 24 hr 08/10/18 08/10/18 08/10/18 02:10 04:24 10:19 Activ Coag Time Kaolin Sodium Potassium Chloride Carbon Dioxide Anion Gap BUN Creatinine Est Cr Clr Drug Dosing Est GFR ( Amer) Est GFR (Non-Af Amer) BUN/Creatinine Ratio Glucose POC Glucose Estimat Average Glucose 183 Hemoglobin A1c 8.0 H Calcium Phosphorus Magnesium Troponin I 0.192 H* Nasal Screen MRSA (PCR) Negative 08/10/18 08/10/18 08/10/18 11:35 16:13 16:14 Activ Coag Time Kaolin 219 H 213 H Sodium Potassium Chloride Carbon Dioxide Anion Gap BUN Creatinine Est Cr Clr Drug Dosing Est GFR ( Amer) Est GFR (Non-Af Amer) BUN/Creatinine Ratio Glucose POC Glucose 133 H Estimat Average Glucose Hemoglobin A1c Calcium Phosphorus Magnesium Troponin I Nasal Screen MRSA (PCR) 08/10/18 08/10/18 08/11/18 17:34 20:52 07:30 Activ Coag Time Kaolin Sodium Potassium Chloride Carbon Dioxide Anion Gap BUN Creatinine Est Cr Clr Drug Dosing Est GFR ( Amer) Est GFR (Non-Af Amer) BUN/Creatinine Ratio Glucose POC Glucose 107 H 94 125 H Estimat Average Glucose Hemoglobin A1c Calcium Phosphorus Magnesium Troponin I Nasal Screen MRSA (PCR) 08/11/18 07:42 Activ Coag Time Kaolin Sodium 142 Potassium 4.0 Chloride 109 H Carbon Dioxide 29 Anion Gap 5.0 BUN 11 Creatinine 0.89 Est Cr Clr Drug Dosing 117.2 Est GFR ( Amer) 115.6 Est GFR (Non-Af Amer) 99.7 BUN/Creatinine Ratio 12.4 Glucose 126 H POC Glucose Estimat Average Glucose Hemoglobin A1c Calcium 9.1 Phosphorus 3.1 Magnesium 2.1 Troponin I Nasal Screen MRSA (PCR) Diagnostic Findings ECG personally reviewed: ECG 08/11/2018: Sinus bradycardia 59 bpm. PVCs. Anterior T-wave inversion. Cardiac catheterization 08/10/2018: Proximal LAD 20-30%. Acute mid LAD 95%. Dominant circumflex. Mid circumflex 20-30%. Distal circumflex stent patent. Moderate OM2 with 40-50% proximal stenosis. Small non dominant RCA with diffuse severe mid disease. PCI of mid LAD with 2.75 x 28 mm Xience RAMSES, post dilated with 3 mm noncompliant balloon. Normal LVEDP. Echo 08/10/2018: Normal LV systolic function. No obvious wall motion abnormality. EF 55-60%. No significant valve issues. Medications Administered Current Inpatient Medications Acetaminophen (Tylenol) 650 mg PO Q4H PRN PRN Reason: Pain or Fever Stop: 09/09/18 01:43 Albuterol (Ventolin Hfa) 1 - 2 puffs INH .Q4-6HRS PRN PRN Reason: Shortness Of Breath Or Wheezing Stop: 09/09/18 00:32 Aspirin (Ecotrin Ectab) 81 mg PO QAM [facility] Stop: 09/09/18 08:59 Last Admin: 08/11/18 08:24 Dose: 81 mg Documented by: Calcium Carbonate (Tums) 500 mg PO Q2H PRN PRN Reason: Indigestion Stop: 09/09/18 02:28 Last Admin: 08/10/18 03:09 Dose: 500 mg Documented by: Carvedilol (Coreg) 25 mg PO BID [facility] Stop: 09/09/18 01:43 Last Admin: 08/11/18 08:24 Dose: 25 mg Documented by: Dextrose (Dextrose 50%) 25 - 50 ml IV UD PRN; Protocol PRN Reason: Hypoglycemia Protocol Stop: 09/09/18 01:59 Glucagon (Glucagen) 1 mg SQ UD PRN; Protocol PRN Reason: Hypoglycemia Protocol Stop: 09/09/18 01:59 Glucose (Glucose 40%) 15 - 30 gm PO UD PRN; Protocol PRN Reason: Hypoglycemia Protocol Stop: 09/09/18 01:59 Glucose (Dex4 Glucose) 4 - 8 tabs PO UD PRN; Protocol PRN Reason: Hypoglycemia Protocol Stop: 09/09/18 01:59 Insulin Aspart (Novolog Flexpen) 0 units SC ACHS [facility] Stop: 09/09/18 07:29 Last Admin: 08/11/18 08:25 Dose: 2 units Documented by: Miscellaneous (Remove Nicoderm Patch) 1 ea N/A HS [facility] Stop: 09/09/18 20:59 Last Admin: 08/10/18 22:05 Dose: 1 ea Documented by: Miscellaneous (Order Awaiting Action) 1 ea N/A QS [facility] Stop: 09/09/18 07:59 Last Admin: 08/11/18 07:58 Dose: Not Given Documented by: Miscellaneous (Carbohydrates For Hypoglycemia) 15 - 30 gm PO UD PRN PRN Reason: Hypoglycemia Treatment Stop: 09/09/18 01:59 Nicotine (Nicoderm Cq) 14 mg TD QAM [facility] Stop: 09/09/18 08:59 Last Admin: 08/11/18 08:24 Dose: 14 mg Documented by: Nitroglycerin (Nitrostat) 0.4 mg SL UD PRN PRN Reason: Chest Pain Stop: 09/09/18 01:43 Ondansetron HCl (Zofran) 4 mg IV Q6H PRN PRN Reason: Nausea And Vomiting Stop: 09/09/18 16:47 Pantoprazole Sodium (Protonix) 40 mg PO DAILY [facility] Stop: 09/09/18 08:59 Last Admin: 08/11/18 08:24 Dose: 40 mg Documented by: Pravastatin Sodium (Pravachol) 20 mg PO HS [facility] Stop: 09/09/18 20:59 Last Admin: 08/10/18 20:38 Dose: 20 mg Documented by: Ticagrelor (Brilinta) 90 mg PO BID [facility] Stop: 09/10/18 08:59 Last Admin: 08/11/18 08:24 Dose: 90 mg Documented by:
--- NOTE | 2018-08-11 16:12 | Discharge Summary ---
Date of Service August 11, 2018 Admission HPI Per Admitting Provider 48-year-old male with history of COPD, hypertension, hyperlipidemia, type II diabetes, CAD��NH status post stents in 2013 in 2013 presents with acute chest pain. He states that the chest pain began at 630 tonight and continue for 45 minutes until he received nitro spray in route to the hospital. He describes the chest pain as initially beginning in his jaw, extending to his bilateral arms and finally becoming a substernal generalized pain. He states that he became short of breath and diaphoretic. He took nitro sublingually at home without any relief. Since his NH in 2013, the patient has had intermittent yola nal symptoms, but they usually resolve fairly quickly. He states that this pain was very similar to his MIs in the past. Patient is a [id number] current smoker. Patient is finishing a course of prednisone for a COPD exacerbation. Review of systems Constitutional; no fevers, chills, night HEENT; no sore throat, no runny nose CV; chest pain described above, no palpitations, no lower extremity swelling Pulmonary; shortness of breath with chest pain, no cough, no wheezing Abdomen; no abdominal pain, no nausea/vomiting/diarrhea Admission Exam Per Admitting Provider Constitutional: WD/WN, vitals as above Eyes: PERRL, conjunctivae normal, anicteric sclerae ENMT: external ear and nose normal, oropharynx normal Neck: trachea midline, no thyromegaly Respiratory: normal respiratory effort, lungs clear to auscultation Cardiovascular: RRR, no murmur, no edema Gastrointestinal (Abdomen): normal bowel sounds, soft, nontender, no hepatosplenomegaly Musculoskeletal: no cyanosis or clubbing, extremities motor strength 5/5 Skin: no rashes, warm and dry Neurologic: PERRL, EOMI, accommodation nl, no face palsy, no dysarthria Psychiatric: A+Ox3, euthymic affect Principal Diagnosis Acute coronary syndrome Discharge Exam General: A&Ox3. NAD. Cooperative. HEENT: Atraumatic, normocephalic. Pulm: Diffuse inspiratory and expiratory wheezes, moderate air movement. No rales. Symmetrical chest rise. No increase work of breathing. No respiratory distress. Cardiac: RRR, -mrg. Radial pulses intact and symmetrical. No JVD. Cap refill brisk. Abdominal: Nontender, nondistended, soft. BS present. Discharge Data Allergies Allergy/AdvReac Type Severity Reaction Status Date / Time clopidogrel [From Plavix] Allergy Severe ITCHING Verified 08/09/18 22:54 Consultations 08/09/18 23:00 ED Decision to Admit Stat 08/10/18 01:44 Consult Cardiology Routine Consult Case Management - Discharge Planning Routine 08/10/18 10:52 Consult Cardiac Catheterization Routine 08/10/18 16:51 Consult Cardiac Rehabilitation Routine Procedures Performed Operation Date: 08/10/18 12:00 Actual Procedures p Cath, Left with Cors and Vent - Aniket Barcenas MD s Drug Eluting Stent SGl Vessel - Aniket Barcenas MD s Cineradiography w/Routine Exam - Aniket Barcenas MD Ordered Studies 08/10/18 10:56 CL Cath Imgs for PACS use only Stat Hospital Course (1) Acute coronary syndrome: Hever Ho is a 48-year-old male with a past medical history of coronary artery disease hypertension type 2 diabetes and tobacco abuse who was admitted for crushing substernal chest pain. Acute coronary syndrome Hever presented with substernal chest pain and shortness of breath with mildly elevated troponins but without acute ST changes on EKG. His cardiac risk factors included diabetes, smoking, hypertension, hyperlipidemia. He had been on pravastatin 20 mg as he had been previously unable to tolerate higher doses/potency of statins due to myalgia. Echocardiogram showed a preserved ejection fraction without any wall motion abnormalities. Given his strong history and risk factors he underwent cardiac catheterization and was found to have a 95% LAD occlusion, widely patent distal circumflex stent, 40 to 50% proximal OM 2 occlusion, and a small nondominant RCA with severe diffuse mid segment disease. He underwent successful PCI of his mid LAD with a single drug- eluting stent. Following PCI he had resolution of his chest pain and did not experience any further chest pain or shortness of breath during admission. His troponins down trended and were never above 1. He was started on dual antiplatelet therapy with Brilinta given his prior allergy to Plavix. He was instructed to remain on dual antiplatelet therapy for 1 year. His carvedilol was continued at prior to admission doses. His statin intolerance was disc ussed, he had not tried a different statin in many years and was not sure if he had been tried on 1 or 2 different ones, but had initially switched to Pravachol due to myalgia. Given his strong history and multiple risk factors it was strongly recommended that he try atorvastatin 40 mg which she was agreeable to, and did not think that he had tried in the past. He was also started on a low- dose of amlodipine 2.5 mg for hypertension. He was not able to tolerate ACEs/ARBs in the past due to cough. Tobacco cessation counseling was provided. Hypertension During admission Hever's blood pressure was well controlled, but he notes that is been persistently elevated at home. He was intolerant of LIZY/ARBs due to the induction of cough. His primary care physician Dr. cisneros had reached out to cardiology regarding amlodipine as a potential option. This was felt to be a good option for him, and he was started on a low-dose of amlodipine 2.5 mg daily on discharge to be further titrated if needed on outpatient follow-up. Hyperlipidemia Hever had declined titration and conversion of his statin to moderate potency in the past and had remained on pravastatin as noted above. The risks and benefits of increasing to moderate potency statin were discussed in detail, with particular emphasis on plaque stabilization, and he was agreeable to a trial of atorvastatin 40 mg on discharge. If he tolerates this well would ideally recommend an up titration to 80 mg as an outpatient. He will be wary of myalgia symptoms, and reach out to his PCP and/or cardiology if he develops these. Tobacco abuse Hever is an active smoker with a 1 pack/day tobacco use for over 20 years. Tobacco cessation counseling was provided, and its effect on his stroke and cardiac risk was discussed in detail. Recommend further follow-up and counseling as an outpatient. Type 2 diabetes mellitus Hever has a history of type 2 diabetes mellitus on metformin monotherapy prior to admission. His A1c was 8.0, slightly up from 7.8 a few months ago. While he recently had his metformin increased to 500 mg twice daily the uptrend in A1c suggests suboptimal control. He had good glucose control while admitted requiring only 7 units of sliding scale over 24 hours for adequate glucose control. This likely reflects a strong dietary component to his poor glycemic control. Recommend further diabetes counseling as outpatient and possible maximization of his metformin therapy. GERD He was continued on a PPI, his AMBULATORY CARE COORDINATOR omeprazole was converted to Protonix 40 mg daily. COPD He has a history of COPD on Anoro Ellipta prior to admission. He was maintained on albuterol inhaler as needed during admission and did not experience any COPD exacerbation. He continued to have good saturations on room air. (2) CAD (coronary artery disease), [place] coronary artery: (3) Chest pain: (4) Hyperlipidemia: (5) Tobacco user: (6) Diabetes: (7) HTN (hypertension): Total Time Total Time Spent Total Time Spent (In Minutes): Less than30 Discharge Plan Discharge Items Patient Disposition: Home - Self-Care Reason For Visit: CHEST PAIN Discharge Diagnosis: Acute coronary syndrome Condition: Fair Discharge Goals: Improve disease control, Prevent disease and Therapeutic intervention Activity: Resume your previous activity Non-emergency contact: Primary Care Provider and Turf Keeper Call non-emergency contact if: you have any medication questions, your symptoms worsen, your pain is not controlled, your pain is worsening, your pain is unusual for you and you have a fever Follow-up/Referrals: Savannah Brownlee PA-C [Physician Business Job Titles] - 08/15/18 8:30 am Barbara Cisneros DO [Primary Care Provider] - (Notified Dr. Cisneros's office that you will need a follow-up appointment within the next week. A task was sent to the nurse. You will be receiving a call from the nurse with your appointment date and time. Please call your PCP's office with any questions or concerns. ) Diet: Heart Healthy Addtl Provider Instructions: You were seen in the hospital for chest pain. You were having a type of heart attack, and underwent a cardiac catheterization. You were found to have a 95% blockage of your LAD, a blood vessel in your heart. You had a stent placed and of had medication changes as noted below. In addition to medication management as noted, it is critically important to work on quitting smoking which is a major risk factor for further heart disease and stroke. You have been started on a heart medication, Brilinta. Please take Brilinta (ticagrelor) 90 mg twice daily by mouth. You will take this medication with aspirin 81 mg daily for at least 1 year, this is known as dual antiplatelet therapy. After 1 year your audit clerk will discuss stopping either the aspirin or Brilinta. Your pravastatin has been changed to atorvastatin (Crestor) 40 mg. The change from pravastatin to atorvastatin will give you additional plaque stabilizing benefits which can help prevent plaque rupture and heart attacks/strokes. Please take atorvastatin 40 mg once daily. Please stop taking pravastatin. If you develop muscle aches, body aches, or symptoms of statin intolerance please call your primary care doctor or audit clerk to discuss this further. You have been started on a blood pressure medication, amlodipine. This was discussed as an alternative to LIZY/ARB treatment which has caused you to develop a cough in the past. Please take amlodipine 2.5 mg once daily. If you develop weakness, dizziness, lightheadedness, extremity swelling, unusual fatigue, lip swelling, or rash please call your primary care doctor or audit clerk regarding this medication, or go to the emergency department if you are very concerned. A follow-up appointment has been made for you with Savannah Brownlee nephdennis on 08/15/2018 at 8:30 AM. If you need to change this appointment please call their office at [phone]. A follow-up appointment is being made for you with your primary care physician Dr. cisneros. He should receive a call to confirm your appointment. If you do not receive a call within 48 hours please call her office at [phone]. A follow-up appointment is being made for you with cardiology. You should receive a call to confirm this appointment. If you do not receive a call, or need to change this appointment, please call their office at [phone]. If you develop any new or worsening symptoms including fever, chills, shortness of breath, difficulty breathing, chest pain, chest pressure, palpitations, episodes of passing out or nearly passing out, sudden vision change, or leg swelling please call your primary care physician at the number above, or call [phone] to return to the emergency department for evaluation if you are concerned. ACTIVITY RECOMMENDATIONS: Excess manipulation of the wrist should be avoided for the next 24-48 hours. * No lifting over 2 pounds (approximately a 1/2 gallon of milk) with the utilized arm for 24 hours. * No strenuous activity such as bowling or tennis for 3 days. * Keep the site of the procedure covered with a bandage for 24 hours. *You may shower the day after the procedure. Do not take a tub bath or submerge the puncture site in water for the next 3 days. *Do not operate any motorized equipment for 3 days. SPECIAL CARE INSTRUCTIONS: The site may be slightly bruised and sore following your procedure. Should any of the following occur, contact the Dr. who performed your procedure. 1. Redness/inflammation, swelling, chills, or fever, or colored drainage at procedure site within 3-7 days after your procedure. 2. Coldness, discoloration, ongoing numbness, severe pain, or swelling. Expect mild tingling of hand and tenderness at the puncture site for up to three days. If this persists beyond three days, or other symptoms develop, notify the Dr. who performed your procedure. BLEEDING: If the procedure site on your wrist begins to bleed, do not panic 1. Place 1 or 2 fingers firmly just slightly above the insertion site to stop the bleeding. You may be able to feel your pulse as you hold pressure. 2. Lift your finger after 5 minutes to see if the bleeding has stopped. 3. Once the bleeding has stopped, gently wipe the wrist area clean with a bandage. * If the bleeding from your wrist does not stop after 10 minutes, or if there is a large amount of bleeding or spurting, call 911 (do not drive yourself to the hospital). SKIN IRRITATION: * You may experience some redness and/or swelling in the area where radiation was administered. If any skin irritation occurs, please contact your family physician. FOLLOW UP VISIT: Keep any scheduled doctor appointments. Prescriptions: New atorvastatin 40 mg tablet 40 mg PO DAILY Qty: 30 RF: 3 aspirin [Ecotrin Low Strength] 81 mg Tablet,Delayed Release (Dr/Ec) 81 mg PO QAM Qty: 30 RF: 3 Brilinta 90 mg Tablet 90 mg PO BID 30 Days Qty: 60 RF: 3 amlodipine 2.5 mg tablet 2.5 mg PO DAILY Qty: 30 RF: 3 Continued metformin [Glucophage] 500 mg tablet 500 mg PO BID RF: 0 prednisone 20 mg tablet PO .TAPER UD RF: 0 omeprazole 20 mg capsule,delayed release(DR/EC) 20 mg PO DAILY RF: 0 albuterol sulfate [Ventolin HFA] 90 mcg/actuation HFA aerosol inhaler 1 - 2 puff inhalation .Q4-6HRS PRN (Reason: Shortness Of Breath Or Wheezing) RF: 0 fluticasone propionate [Flonase Allergy Relief] 50 mcg/actuation spray,suspension 1 spray intranasal DAILY RF: 0 Anoro Ellipta 62.5-25 mcg/actuation blister with device 1 ea inhalation DAILY RF: 0 carvedilol [Coreg] 25 mg tablet 25 mg PO BID 90 Days Qty: 180 RF: 1 Discontinued pravastatin [Pravachol] 20 mg tablet 20 mg PO HS RF: 0 Visit Report Forms: Smoking Cessation Stand-Alone Forms: Call Back Authorization, [facility] Discharge Orders: Discharge Order (Routine); Ordered 08/11/18 Ordered By: Chavo Jolley Admission Data Admit Date/Time: 08/10/18 18:18 Attending Provider: Chester Sevilla Admit Provider: Lenny Darling Primary Care Provider: Brabara Cisneros Other Providers: Enrike Farias ; Hever Gaines ; Aniket Barcenas Service: Telemetry Other Interventions: Discharge Summary Assessment (RN) Last Done: 08/11/18 15:53 DC Date/Time DO NOT enter until pt leaves facility: 08/11/18 17:02 Supervising Physician Co-Signing Physician Notes I personally examined the patient and verified all corea points of history and exam, discussed case, and agree with decision making with Dr Jolley. Feeling better. No chest pain. Would like to go home. Extensive discussion on lifestyle change in medications done by Dr. Jolley, I reiterated the importance of medications and the frightening statistics on patient compliance after an NH, especially in light of how beneficial med management can be for secondary risk reduction. We also discussed lifestyle change in the significant secondary risk reduction of not smoking/light cardiovascular exercise daily/Mediterranean diet. He expresses good understanding. Vitals noted, in general he is awake and alert pleasant no distress. HEENT normocephalic atraumatic mucous membranes are moist. Breathing unlabored no accessory muscle use good effort. Skin shows no rashes no pallor or icterus. NSTEMI�Appearing stable now status post cath and stenting. Secondary risk reduction with lifestyle and med management. Is willing to try atorvastatin again, as the questionable reaction to it before was nebulous. This time he also knows what to watch for, so if he does have any reaction it should not be a long drawn out a mysterious situation of solving it. Close outpatient follow- up with PCP and cardiology. He expresses good understanding and is stable for home.There was a noted issue with coverage for Brilinta, right now he will have a card that will make it affordable, and cardiology is assuming further follow- up on continuation of this. It is significantly notable given his itching related to Plavix. Resident Activity Tracking Resident Involvement: Resident Care Provided Care Provided: Adult [facility]
--- NOTE | 2018-08-15 14:41 | Coding Query ---
CODING QUERY To promote full compliance with coding requirements relating to patient care, provider participation is requested in all cases of bpm developer uncertainty. Please assist us with the question(s) below: Coding Question(s): Patient admitted with acute chest pain. PCI with one RAMSES performed. Please check below the diagnosis that was treated during this inpatient stay. Thank you ! Ralph Cruz [facility] Physician's Response(s): ___x____ unstable angina ___x____ acute coronary syndrome NSTEMI Other/ Please document: Principal Diagnosis: "�that condition established after study, to be chiefly responsible for occasioning the admission of the patient to the hospital for care." Co-Existing Principal Diagnosis: "�when two or more diagnoses equally meet the criteria for principal diagnosis as determined by the circumstances of admission, diagnostic work up, and/or therapy provided, and the Alphabetic Index, Tabular List, or another coding guideline does not provide sequencing direction, any one of the diagnoses may be sequenced first." "When the physician has documented what appears to be a current diagnosis in the body of the record, but has not included the diagnosis in the final diagnostic statement, the physician should be asked whether the diagnosis should be added." (Source Coding [facility] 2 QTR90. p3-4) ROMINA
== END 2018-08-11 17:02 | disposition home or self-care (01) | DRG 247 ==
LOC: 1E 21:57 → ED 21:57 → SUATTDRO 08-10 00:41 → 1E 08-10 01:12 → 2S 08-10 17:11
DX: E78.5 Hyperlipidemia, unspecified; J44.9 Chronic obstructive pulmonary disease, unspecified; Z95.5 Presence of coronary angioplasty implant and graft; E11.9 Type 2 diabetes mellitus without complications; F17.210 Nicotine dependence, cigarettes, uncomplicated; I10 Essential (primary) hypertension; I25.2 Old myocardial infarction; I25.110 Atherosclerotic heart disease of native coronary artery with unstable angina pectoris; Z79.84 Long term (current) use of oral hypoglycemic drugs